=== PATIENT | male | born 1975 | race Caucasian/White ===

== ENCOUNTER 2017-01-13 13:52 | Inpatient (IN) | payer OTHER ==
[~2017-01-13] VITALS: Ht 180.3 cm; Wt 99.0 kg
[2017-01-13 15:17] LABS: HEMOGLOBIN 16.3 g/dL (13.7-18.0)
[2017-01-13 15:30] LABS: BLOOD UREA NITROGEN 14 mg/dL (7-18)
[2017-01-13 15:39] LABS: IS PT STATUS REG ER OR PRE ER? YES
[2017-01-13 17:25] LABS: IS PT STATUS REG ER OR PRE ER? YES
[2017-01-13] MEDS ORDERED: SODIUM CHLORIDE FLUSH 10ML SYR IVF PRN (18:30)
[2017-01-13] MEDS ORDERED: ASPIRIN 81 MG TABLET CHEW PO ONE (18:30)
[2017-01-13] MEDS ORDERED: PLEASE ENTER ALLERGIES MC SCH ×2 (18:30)
[2017-01-13] MEDS ORDERED: SODIUM CHLORIDE 0.9% 1,000 ML IV SCH (19:34)
[2017-01-13] MEDS ORDERED: DOCUSATE 100 MG CAPSULE PO PRN (20:00)
[2017-01-13] MEDS ORDERED: ACETAMINOPHEN 325 MG TABLET PO PRN (20:00)
[2017-01-13] MEDS ORDERED: ENOXAPARIN 40 MG/0.4 ML SQ SCH (20:00)
[2017-01-13 20:30] LABS: IS PT STATUS REG ER OR PRE ER? NO
[2017-01-13 23:10] VITALS: BP 145/85
[2017-01-14 02:15] VITALS: BP 116/72
[2017-01-14 02:15] LABS: BLOOD UREA NITROGEN 15 mg/dL (7-18)
[2017-01-14 02:19] LABS: ASPARTATE AMINO TRANSFERASE 25 U/L (15-37)
[2017-01-14 02:37] LABS: IS PT STATUS REG ER OR PRE ER? NO
[2017-01-14 07:05] VITALS: BP 118/79
[2017-01-14 13:27] VITALS: BP 129/81
[2017-01-14 21:15] VITALS: BP 133/88
[2017-01-15 03:25] VITALS: BP 134/87
[2017-01-15 06:56] VITALS: BP 112/69
[2017-01-15] MEDS ORDERED: SODIUM CHLORIDE 0.9% 1,000 ML IV SCH (08:56)
[2017-01-15] MEDS ORDERED: MIDAZOLAM 1 MG/ML, 5ML ONE (10:32)
[2017-01-15] MEDS ORDERED: FENTANYL PF 250 MCG/5ML ONE ×2 (10:32→14:03)
[2017-01-15] MEDS ORDERED: ISOPROTERENOL 0.2MG/ML, 5ML ONE (10:40)
[2017-01-15] MEDS ORDERED: PROTAMINE SULFATE 10 MG/ML, 5ML ONE ×2 (10:41→10:46)
[2017-01-15] MEDS ORDERED: HEPARIN 1,000 UNITS/ML, 10ML ONE (10:41)
[2017-01-15] MEDS ORDERED: LIDOCAINE 2%, 20ML ONE (10:41)
[2017-01-15] MEDS ORDERED: ONDANSETRON 2MG/ML, 2ML ONE (10:46)
[2017-01-15] MEDS ORDERED: SUCCINYLCHOLINE 20 MG/ML, 10ML ONE (10:46)
[2017-01-15] MEDS ORDERED: ROCURONIUM 10 MG/ML ONE (10:46)
[2017-01-15] MEDS ORDERED: DEXAMETHASONE 4 MG/ML, 1ML ONE (10:46)
[2017-01-15] MEDS ORDERED: PROPOFOL 10 MG/ML, 20ML ONE (10:46)
[2017-01-15] MEDS ORDERED: FENTANYL PF 100 MCG/2ML ONE ×2 (13:20→16:27)
[2017-01-15] MEDS ORDERED: HYDROcodone/APAP 5/325 TABLET PO PRN (16:00)
[2017-01-15] MEDS ORDERED: hydrALAzine 20 MG/ML, 1ML IV PRN (16:00)
[2017-01-15] MEDS ORDERED: LABETALOL 5MG/ML, 20ML IV PRN (16:00)
[2017-01-15] MEDS ORDERED: MEPERIDINE/PF 25MG/0.5ML IVPush PRN (16:00)
[2017-01-15] MEDS ORDERED: MIDAZOLAM 1 MG/ML, 2ML IV PRN (16:00)
[2017-01-15] MEDS ORDERED: FENTANYL PF 100 MCG/2ML IV PRN (16:00)
[2017-01-15] MEDS ORDERED: PROMETHAZINE 25 MG/ML, 1ML IV PRN (16:00)
[2017-01-15] MEDS ORDERED: ALBUTEROL SULFATE 2.5 MG/3 ML NPPB PRN (16:00)
[2017-01-15] MEDS ORDERED: OXYcodone 5 MG/5 ML ORAL.SOL UDC PO PRN (16:00)
[2017-01-15] MEDS ORDERED: HYDROmorphone 1 MG/ML, 1ML IV PRN (16:00)
[2017-01-15] MEDS ORDERED: ONDANSETRON 2MG/ML, 2ML IVPush PRN (16:00)
[2017-01-15] MEDS ORDERED: ACETAMINOPHEN 325 MG TABLET PO PRN (16:00)
[2017-01-15] MEDS ORDERED: OXYcodone 5 MG/5 ML ORAL.SOL UDC ONE (16:09)
[2017-01-15 17:06] VITALS: BP 149/93
[2017-01-15 19:53] VITALS: BP 147/88
[2017-01-16 03:14] VITALS: BP 115/73
[2017-01-16] MEDS ORDERED: ASPIRIN 325 MG TABLET PO SCH (06:00)
[2017-01-16 06:25] LABS: HEMOGLOBIN 15.2 g/dL (13.7-18.0)
[2017-01-16 06:32] LABS: BLOOD UREA NITROGEN 12 mg/dL (7-18)
[2017-01-16 06:51] VITALS: BP 112/75
[2017-01-16] MEDS ORDERED: CLOPIDOGREL 75 MG TABLET PO SCH (09:00)
[2017-01-16] MEDS ORDERED: ASPI325T4 PO ×2 (11:35→11:38)
[2017-01-16] MEDS ORDERED: CLOP75TA PO (11:35)
== END 2017-01-16 12:41 | disposition home or self-care (01) | DRG 273 ==
LOC: ED 14:32 → EDIP 18:50 → 5SO 20:05
PROVIDERS: ADMIT Internal Medicine; ATTEND Internal Medicine
PROC: 02K83ZZ Map Conduction Mechanism, Percutaneous Approach (ICD-10-PCS; 2017-01-15)
PROC: 4A023FZ Measurement of Cardiac Rhythm, Percutaneous Approach (ICD-10-PCS; 2017-01-15)
PROC: 4A0234Z Measurement of Cardiac Electrical Activity, Percutaneous Approach (ICD-10-PCS; 2017-01-15)
PROC: B246ZZZ Ultrasonography of Right and Left Heart (ICD-10-PCS; 2017-01-15)
PROC: 02583ZZ Destruction of Conduction Mechanism, Percutaneous Approach (ICD-10-PCS; principal; 2017-01-15 11:00)
DX: I45.6 Pre-excitation syndrome (principal); I21.4 Non-ST elevation (NSTEMI) myocardial infarction; I47.1 Supraventricular tachycardia; D72.829 Elevated white blood cell count, unspecified; F12.90 Cannabis use, unspecified, uncomplicated; Z98.890 Other specified postprocedural states
CPT/HCPCS: 36415; 71010; 80048; 80053; 80061; 82040; 83735; 84100; 84443; 84484; 85025; 85347; 85610; 85730; 93005; 93306; 93462; 93613; 93621; 93653; 93662; 96360; C1732; C1760; C1766; C1893; C1894; J1100; J1644; J1650; J2250; J2405; J2704; J2720; J3010; J3490; C1730; C1759; J0330; J7030; Q9967